=== PATIENT | female | born 1995 | race Caucasian/White ===

== ENCOUNTER 2016-09-04 16:15 | Emergency (ER) | payer BC ==
[~2016-09-04] VITALS: Ht 162.6 cm; Wt 52.2 kg
--- NOTE | 2016-09-04 16:39 | NUR ---
DISPATCH CALLED DISPATCH FOR [facility] TO CALL ME.
--- NOTE | 2016-09-04 16:45 | NUR ---
[facility] AN[facility] RETURNED PHONE CALL, THEY GOT PT NAME AND PHONE NUMBER AND STATED THAT THEY WOULD CONTACT PT AND THAT THEY WOULD CONTACT THE HEALTH DEPT AND HELP HER GET ANY SHOTS THAT THEY THOUGHT WERE NECESSARY.
--- NOTE | 2016-09-04 16:48 | ER.PDOC ---
General Chief Complaint: Animal Bite Stated Complaint: DOG BIT Time seen by MD: 17:00 Source: patient Exam Limitations: no limitations History of Present Illness Onset: just prior to arrival Animal: dog Animal Appearance: appeared well Animal Disposition: Animal Control Notified Context of Attack: "provoked " attack Severity of Injury: scratched, bitten Injury Location: upper extremity (R HAND) Past Medical History Medical History: no pertinent history Surgical History: no surgical history LMP (females 10-50): 3 weeks Social History Smoking: non-smoker Alcohol Use: none Drug Use: none Review of Systems Constitutional: no symptoms reported Eyes: no symptoms reported Ears: no symptoms reported Nose: no symptoms reported Mouth: no symptoms reported Throat: no symptoms reported Respiratory: no symptoms reported Cardiovascular: no symptoms reported Genitourinary: no symptoms reported Musculoskeletal: other (PUNCTURE ) Skin: no symptoms reported Psychiatric/Neurological: no symptoms reported All Other Systems: Reviewed and Negative Physical Exam General Appearance: alert, no distress Skin: puncture (R HAND), abrasion Neuro/Vascular/Tendon: no vascular compromise, sensation nml, oriented x3, nml ROM, CN's nml as tested Psych: mood/affect nml HEENT: atraumatic, PERRL, eye lids/conjun nml, ENT nml external inspect. Neck: uninjured, nml inspection Resp/CVS: chest non-tender, breath sounds nml, heart sounds nml, reg. rate & rhythm Abdomen: nml inspection, non-tender Back: nml inspection Extremities: nml inspection, no infection, ROM nml Consult/PCP Consult/PCP: [facility] CONTACTED Course Blood Pressure Systolic: 133 Blood Pressure Diastolic: 92 Blood Pressure Mean: 106 Departure Time of Disposition: 17:00 Disposition: 01 HOME, SELF-CARE Impression: Primary Impression: Dog bite Referrals: PCP,UNKNOWN (PCP) PRIMARY CARE PROVIDER JONATHAN IGLESIAS MD Sep 04, 2016 16:48
[2016-09-04 17:00] VITALS: BP 133/92
== END 2016-09-04 16:57 | disposition home or self-care (01) ==
LOC: ER 16:15
DX: S61.451A Open bite of right hand, initial encounter (principal); W54.0XXA Bitten by dog, initial encounter; Y93.89 Activity, other specified; Y92.89 Other specified places as the place of occurrence of the external cause; Y99.8 Other external cause status
CPT/HCPCS: 99283